=== PATIENT | female | born 1950 | race African-American/Black ===

== ENCOUNTER 2017-05-07 16:26 | Emergency (ER) | payer MEDICAID ==
[~2017-05-07] VITALS: Ht 157.5 cm; Wt 69.0 kg
[~2017-05-07 16:26] MED LIST: ASPI-1158; DILT180C64; DILTIAZEM; RANI150C12; VALS1TAB34; VALSARTAN
[2017-05-07] MEDS ORDERED: SODIUM CHLORIDE 0.9% 1,000 ML IV ONE (21:15)
[2017-05-07] MEDS ORDERED: KETOROLAC 15MG/ML VIAL IV ONE (21:15)
[2017-05-07 22:13] VITALS: BP 155/67
== END 2017-05-07 23:29 | disposition home or self-care (01) ==
LOC: ER 19:45
DX: G44.209 Tension-type headache, unspecified, not intractable (principal); M25.512 Pain in left shoulder; I10 Essential (primary) hypertension; E78.00 Pure hypercholesterolemia, unspecified; Z72.0 Tobacco use; Z79.82 Long term (current) use of aspirin
CPT/HCPCS: 96361; 96374; 99284; J1885; J7030; Z7610

== ENCOUNTER 2017-05-10 13:44 | Emergency (ER) | payer MEDICAID ==
[~2017-05-10] VITALS: Ht 157.5 cm; Wt 69.0 kg
[2017-05-10] MEDS ORDERED: SUMATRIPTAN SUCCINATE 6MG/0.5ML VIAL SUBCUT ONE (16:15)
[2017-05-10 20:13] LABS: BASOPHILS % 0.7 % (0.0-2.0); CARBON DIOXIDE 27 mEq/L (21-32); CHLORIDE 106 mEq/L (98-107); EOSINOPHILS % 0.8 % (0.0-5.0); HEMATOCRIT. 41.5 % (36.0-48.0); HEMOGLOBIN. 13.4 g/dL (12.0-16.0); LYMPHOCYTES % 41.6 % (20.0-50.0); MEAN CORPUSCULAR HEMOGLOBIN 26.5 pg (28.0-32.0); MONOCYTES % 8.4 % (2.0-8.0); NEUTROPHILS % 48.5 % (40.0-76.0); PLATELET 265 x1000/uL (130-400); RED BLOOD CELL COUNT 5.06 mill/uL (4.2-5.4); RED CELL DISTRIBUTION WIDTH 14.7 % (11.6-14.6)
[2017-05-10 21:00] VITALS: BP 116/76
== END 2017-05-10 21:02 | disposition home or self-care (01) ==
LOC: ER 16:43
DX: M54.2 Cervicalgia (principal); I10 Essential (primary) hypertension; F17.210 Nicotine dependence, cigarettes, uncomplicated; E78.00 Pure hypercholesterolemia, unspecified; Z98.890 Other specified postprocedural states
CPT/HCPCS: 36415; 70450; 80053; 85025; 96372; 99285; J3030

== ENCOUNTER 2017-12-25 11:59 | Emergency (ER) | payer MEDICARE, MEDICAID ==
[~2017-12-25] VITALS: Ht 157.5 cm; Wt 72.0 kg
[~2017-12-25 11:59] MED LIST changes: -DILT180C64; +DILT180C93
[2017-12-25] MEDS ORDERED: SODIUM CHLORIDE 0.9% 1,000 ML IV ONE (13:27)
[2017-12-25] MEDS ORDERED: KETOROLAC 30MG/ML VIAL IV STA (13:27)
[2017-12-25 14:21] LABS: CLARITY URINE CLEAR (CLEAR); COLOR URINE YELLOW (YELLOW); KETONES URINE NEGATIVE (NEGATIVE); LEUKOCYTE ESTERASE URINE NEGATIVE (NEGATIVE); NITRITE URINE NEGATIVE (NEGATIVE); OCCULT BLOOD URINE NEGATIVE (NEGATIVE); PH URINE 7.5 (4.5-8.0); PROTEIN URINE NEGATIVE (NEGATIVE); SPECIFIC GRAVITY URINE 1.007 (1.005-1.030)
[2017-12-25 15:10] LABS: BASOPHILS % 0.6 % (0.0-2.0); EOSINOPHILS % 1.1 % (0.0-5.0); HEMATOCRIT. 35.1 % (36.0-48.0); HEMOGLOBIN. 11.7 g/dL (12.0-16.0); LYMPHOCYTES % 50.6 % (20.0-50.0); MEAN CORPUSCULAR HEMOGLOBIN 27.8 pg (28.0-32.0); MEAN CORPUSCULAR VOLUME 83.2 fL (81.0-99.0); MEAN PLATELET VOLUME 8.3 fl (7.4-10.4); MONOCYTES % 7.7 % (2.0-8.0); PLATELET 229 x1000/uL (130-400); RED BLOOD CELL COUNT 4.22 mill/uL (4.2-5.4); RED CELL DISTRIBUTION WIDTH 15.7 % (11.6-14.6)
[2017-12-25 15:12] LABS: CHLORIDE 108 mEq/L (98-107)
[2017-12-25 16:05] VITALS: BP 142/78
== END 2017-12-25 16:06 | disposition home or self-care (01) ==
LOC: ER 12:40
DX: R10.9 Unspecified abdominal pain (principal); I10 Essential (primary) hypertension; F17.200 Nicotine dependence, unspecified, uncomplicated; Z79.82 Long term (current) use of aspirin; Z90.710 Acquired absence of both cervix and uterus
CPT/HCPCS: 36415; 74176; 80053; 81003; 83690; 85025; 96361; 96374; 99285; J1885; J7030

== ENCOUNTER → 2018-06-02 | Outpatient (CLI) | payer MEDICARE, MEDICAID | END | disposition home or self-care (01) | LOC: CT 10:21 | PROVIDERS: ATTEND Specialist | DX: N20.0 Calculus of kidney (principal); I70.0 Atherosclerosis of aorta | CPT/HCPCS: 74176 ==

== ENCOUNTER 2024-01-30 08:25 | Emergency (ER) | payer MEDICARE, MEDICAID, OTHER ==
[~2024-01-30] VITALS: Ht 157.5 cm; Wt 59.0 kg
[~2024-01-30 08:25] MED LIST changes: -ASPI-1158; +ASPI-1406; +DILT-27; -DILT180C93
[2024-01-30 09:13] VITALS: TEMP 97.2; O2SAT 100
[2024-01-30 10:00] VITALS: BP 142/65; PULSE 100; RESP 16
[2024-01-30] MEDS: ONDANSETRON 4MG ODT PO ONE (10:00)
[2024-01-30] MEDS: HYDROCODONE/ACETAMINOPHEN 5/325MG TABLET PO ONE (10:00)
[2024-01-30] MEDS ORDERED: DICL100G58 TP (13:34)
== END 2024-01-30 14:03 | disposition home or self-care (01) ==
LOC: ER 08:25
DX: S69.92XA Unspecified injury of left wrist, hand and finger(s), initial encounter (principal); M79.642 Pain in left hand; M65.9 Synovitis and tenosynovitis, unspecified; I10 Essential (primary) hypertension; Z90.710 Acquired absence of both cervix and uterus; Z79.899 Other long term (current) drug therapy; X58.XXXA Exposure to other specified factors, initial encounter; Y93.89 Activity, other specified; Y92.89 Other specified places as the place of occurrence of the external cause; Y99.8 Other external cause status
CPT/HCPCS: 99284; 73200; 73110; 73130; Q0162

== ENCOUNTER 2024-04-11 12:59 | Emergency (ER) | payer OTHER, MEDICAID ==
[~2024-04-11] VITALS: Ht 165.1 cm; Wt 63.0 kg
[~2024-04-11 12:59] MED LIST changes: +DICL100G58 TP
[2024-04-11 13:46] VITALS: O2SAT 100
[2024-04-11] MEDS: KETOROLAC 30MG/ML VIAL IM ONE (15:30)
[2024-04-11] MEDS ORDERED: DICL100G58 TP (16:12)
[2024-04-11 16:34] VITALS: BP 139/56; PULSE 62; RESP 15; TEMP 98.1
== END 2024-04-11 16:34 | disposition home or self-care (01) ==
LOC: ER 14:14
DX: M19.072 Primary osteoarthritis, left ankle and foot (principal); I10 Essential (primary) hypertension; Z79.82 Long term (current) use of aspirin; Z98.890 Other specified postprocedural states; Z90.710 Acquired absence of both cervix and uterus; Z79.899 Other long term (current) drug therapy
CPT/HCPCS: 99283; 73630; J1885